=== PATIENT | male | born 1990 | race Caucasian/White ===

== ENCOUNTER 2017-06-11 19:20 | Emergency (ER) | payer OTHER, MEDICAID ==
[2017-06-11 21:06] LABS: BASOPHIL % 0.7 % (0-2); PLATELET COUNT 240 x10^3mcL (130-400); RED CELL DISTRIBUTION WIDTH 12.9 % (11.5-14.5)
[2017-06-11 21:12] LABS: CALCIUM 8.6 mg/dL (8.5-10.1); CARBON DIOXIDE 24.1 mmol/L (21-32); CHLORIDE SERUM 107 mmol/L (98-107); CREATININE SERUM 0.9 mg/dL (0.7-1.3); GFR1 > 60 mL/min; GLUCOSE SERUM 108 mg/dL (74-106); POTASSIUM SERUM 4.3 mmol/L (3.5-5.1); SODIUM SERUM 142 mmol/L (136-145)
[2017-06-11 21:17] LABS: ALBUMIN 3.6 g/dL (3.4-5.0); ALKALINE PHOSPHATASE 61 U/L (46-116); ALT/SGPT 56 U/L (16-63); AST/SGOT 22 U/L (15-37); BILIRUBIN TOTAL 0.41 mg/dL (0.20-1.00); LIPASE 97 IU/L (73-393); TOTAL PROTEIN, SERUM 7.8 g/dL (6.4-8.2)
[2017-06-11 23:00] VITALS: BP 136/66
== END 2017-06-11 23:16 | disposition home or self-care (01) ==
LOC: ED 19:20
PROVIDERS: Emergency Medicine
DX: K29.70 Gastritis, unspecified, without bleeding (principal)
CPT/HCPCS: J2405; J7030

== ENCOUNTER 2017-08-12 08:34 | Emergency (ER) | payer OTHER, MEDICAID ==
[~2017-08-12] VITALS: Ht 177.8 cm; Wt 117.9 kg
[2017-08-12 09:31] VITALS: BP 136/83
== END 2017-08-12 09:31 | disposition home or self-care (01) ==
LOC: ED 08:34
DX: H00.014 Hordeolum externum left upper eyelid (principal)

== ENCOUNTER 2017-10-20 09:08 | Emergency (ER) | payer OTHER, MEDICAID ==
[2017-10-20 11:37] VITALS: BP 132/82
== END 2017-10-20 11:38 | disposition home or self-care (01) ==
LOC: ED 09:08
DX: J06.9 Acute upper respiratory infection, unspecified (principal)